=== PATIENT | male | born 1955 | race Caucasian/White ===

== ENCOUNTER 2019-02-01 01:14 | Emergency (ER) | payer SELFPAY ==
[2019-02-01 03:42] VITALS: TEMP 98.3; BMI 16.9
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
[2019-02-01 08:44] VITALS: BP 154/84; PULSE 101
== END 2019-02-01 08:44 | disposition home or self-care (01) ==
LOC: JER 01:14
DX: M25.511 Pain in right shoulder (principal); Y04.2XXA Assault by strike against or bumped into by another person, initial encounter; Y93.89 Activity, other specified; Y92.009 Unspecified place in unspecified non-institutional (private) residence as the place of occurrence of the external cause; F17.210 Nicotine dependence, cigarettes, uncomplicated
CPT/HCPCS: 70450-TC; 71046-TC-FY; 72125-TC; 73030-TC-RT-FY; 73060-TC-RT-FY; 73560-TC-LT-FY; 73590-TC-LT-FY; 73610-TC-LT-FY; 73630-TC-LT; 99281-25

== ENCOUNTER 2024-04-21 21:00 | Emergency (ER) | payer OTHER ==
[2024-04-21 21:06] VITALS: RESP 18; BMI 20.9
[2024-04-21] MEDS ORDERED: DIPHTH,PERTUSS(ACELL),TET 0.5 ML DISP.SYRIN IM ONE (22:11)
[2024-04-21] MEDS ORDERED: ACETAMINOPHEN 325 MG TABLET (FP) ONE (22:13)
[2024-04-21] MEDS ORDERED: METHOCARBAMOL 500 MG TABLET ONE (22:14)
[2024-04-21] MEDS ORDERED: LIDOCAINE 4% PATCH TP ONE (22:15)
[2024-04-21] MEDS: DIPHTH,PERTUSS(ACELL),TET 0.5 ML DISP.SYRIN IM ONE (22:24)
[2024-04-21] MEDS: METHOCARBAMOL 500 MG TABLET PO ONE (22:25)
[2024-04-21] MEDS: ACETAMINOPHEN 325 MG TABLET (FP) PO ONE (22:25)
[2024-04-21] MEDS: LIDOCAINE 5% TOPICAL PATCH TP ONE (22:25)
[2024-04-21] MEDS ORDERED: KETOROLAC TROMETHAMINE 30 MG/1 ML VIAL ONE (23:40)
[2024-04-21] MEDS: KETOROLAC TROMETHAMINE 30 MG/1 ML VIAL IM ONE (23:45)
[2024-04-22 00:48] VITALS: BP 129/67; PULSE 79; TEMP 97.8
[2024-04-22 02:23] LABS: HEMATOCRIT 46.2 % (35.4-49); HEMOGLOBIN 15.4 GM/dL (11.7-16.9); MCH 30.1 pg (25.7-33.7); MCHC 33.3 g/dl (32.0-35.9); MEAN CELL VOLUME 90.6 fl (80-96); MEAN PLT VOLUME 9.6 fl (7.5-11.1); PLATELET COUNT 207 10^3/uL (134-434); RBC 5.09 M/mm3 (4.00-5.60); RDW 15.1 % (11.9-15.9); WHITE BLOOD COUNT 10.7 K/mm3 (4.0-10.0)
[2024-04-22 02:39] LABS: POTASSIUM 3.9 mmol/L (3.5-5.1)
[2024-04-22 02:41] LABS: CALCIUM 9.5 mg/dL (8.5-10.1)
[2024-04-22 02:42] LABS: BLOOD UREA NITROGEN 14.8 mg/dL (7-18)
[2024-04-22 02:46] LABS: BILIRUBIN,TOTAL 0.8 mg/dL (0.2-1); TOT PROT 7.7 g/dl (6.4-8.2)
[2024-04-22 03:05] LABS: INR 1.09 (0.83-1.09); PROTHROMBIN TIME (PATIENT) 12.5 SEC (9.7-13.0)
[2024-04-22 03:08] LABS: ACTIVATED PTT 34.1 SECONDS (25.2-36.5)
== END 2024-04-22 03:18 | disposition short-term general hospital (02) ==
LOC: JER 21:00
PROC: 0HQ0XZZ Repair Scalp Skin, External Approach (ICD-10-PCS; principal; 2024-04-21)
DX: S06.5X0A Traumatic subdural hemorrhage without loss of consciousness, initial encounter (principal); S01.01XA Laceration without foreign body of scalp, initial encounter; M25.522 Pain in left elbow; M25.511 Pain in right shoulder; W17.89XA Other fall from one level to another, initial encounter
CPT/HCPCS: 12002; 36415; 70450-TC; 72100-TC-FY; 72125-TC; 73030-TC-RT-FY; 73070-TC-LT-FY; 80053; 85025; 85610; 85730; 86850; 86900; 86901; 90471; 90715; 99285-25

== ENCOUNTER 2024-05-01 09:14 | Emergency (ER) | payer OTHER ==
[2024-05-01 09:24] VITALS: BP 132/73; PULSE 80; RESP 16; TEMP 98.7; BMI 22.6
== END 2024-05-01 10:10 | disposition home or self-care (01) ==
LOC: JERFT 09:14
DX: Z48.02 Encounter for removal of sutures (principal)
CPT/HCPCS: 99281-25